=== PATIENT | female | born 1970 | race Caucasian/White ===

== ENCOUNTER 2021-02-16 11:39 | Emergency (ER) | payer OTHER, SELFPAY ==
[2021-02-16] VITALS (10 sets, daily range): BP systolic 98–133; BP diastolic 52–73; PULSE 62–78; RESP 16–18; TEMP 36.9; O2SAT 97–100
[2021-02-16 12:31] LABS: Basophils # 0.1 10^3/uL (0.0-0.1); Basophils % 1.1 %; Eosinophils # 0.1 10^3/uL (0.0-0.8); Eosinophils % 1.5 %; Hematocrit 42.1 % (37.0-47.0); Hemoglobin 13.6 g/dL (11.5-15.3); Lymphocytes # 2.3 10^3/uL (0.8-4.8); Lymphocytes % 30.3 %; Mean Corpuscular HGB Conc 32.3 g/dL (30.0-36.0); Mean Corpuscular Volume 95.9 fL (81-99); Mean Platelet Volume 10.2 fL (7.4-10.4); Monocytes # 0.6 10^3/uL (0.2-0.9); Monocytes % 7.7 %; Neutrophils # 4.44 10^3/uL (1.8-7.7); Neutrophils % 59.1 %; Nucleated Red Blood Cells % 0 %; Platelet Count 245 10^3/cmm (130-400); Red Blood Count 4.39 10^6/uL (4.1-5.3); Red Cell Distribution Width 13.7 % (12.1-15.1); White Blood Count 7.5 10^3/uL (4.0-10.0)
--- NOTE | 2021-02-16 12:41 | ED_ITS ---
HPI - Animal Bite General: Chief Complaint: Animal Bite Stated Complaint: SNAKE BITE LEFT LEG Time Seen by Provider: 02/16/21 11:45 Source: patient and family Mode of arrival: ambulatory Limitations: no limitations History of Present Illness: HPI narrative: Patient is a 51 year old female who presents to the ED with complaints of a snake bite to her right leg. She was gardening at home and while in the garden felt a bite to her right calf. She did not see the snake but noticed 2 puncture wounds in the area of the bite. No bleeding, no breathing difficulties, no numbness or tingling or other neurologic symptoms. She has some swelling around the bite. 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 She is here to be evaluated for this. MD complaint: animal bite Onset (ago): hour(s) (1) Animal: snake Description of animal: wild animal Mechanism: bite Location - Extremities: Right: lower leg Pain description: sharp Severity scale (1-10): 6 Context: unprovoked Associated symptoms: Deny bleeding, chills, cough, diaphoresis, erythema, fever(s), headache(s), numbness, rash, short of breath, syncope, weakness or wound drainage Review of Systems General: Reports: 10 or more systems reviewed and unremarkable except in HPI and below Const: Denies: fever(s), chills or diaphoresis Card: Denies: syncope Neuro: Denies: headache(s) Physical Exam Const: COMMON NORMALS: no acute distress, average body habitus, patient orien samara x3, no limitations, healthy appearing, alert and well nourished HENMT: COMMON NORMALS: normocephalic, atraumatic and moist oral mucous membran es HEAD & SCALP: normocephalic and atraumatic Neck/C-Spine: COMMON NORMALS: full ROM, supple, no meningeal signs, no JVD and No carotid bruits Resp: COMMON NORMALS: normal respiratory effort, No retractions, No use of accessory muscles, clear to auscultation bilaterally and percussion normal AUSCULTATION: clear to auscultation bilaterally PERCUSSION: percussion normal Cardio: COMMON NORMALS: no JVD, regular rate, regular rhythm, S1 normal heart sound present, S2 normal heart sound present, No gallops present (Cardio), No clicks present (Cardio), No murmurs present (Cardio), No rub (Cardio) and Peripheral pulses 2+ throughout RATE: regular rate RHYTHM: regular rhythm HEART SOUNDS: S1 normal heart sound present and S2 normal heart sound present PERIPHERAL PULSES: Peripheral pulses 2+ throughout GI: COMMON NORMALS: Normal to inspection, nondistended, normoactive bowel sounds present, Soft to palpation, non-tender, No hepatosplenomegaly present, no masses and no bruits PALPATION: Yes Soft to palpation and Yes No hepatosplenomegaly present Extremity: COMMON NORMALS: normal to inspection, full ROM, capillary refill normal, no calf tenderness and no pedal edema Neuro: COMMON NORMALS: patient oriented x3 SENSORIUM/ORIENTATION: Yes alert MENINGEAL SIGNS: Yes no meningeal signs Skin: COMMON NORMALS: turgor normal, no jaundice, no petechiae and no mottling NARRATIVE SKIN EXAM: there are barely visible puncture holley on the proximal right calf in a longitudinal orientation. Mild swelling around the puncture wounds. No erythema, no bleeding from the wounds, no drainage from the wounds. GENERAL SKIN EXAM: turgor normal and no erythema Course Reevaluation(s): Reevaluation #1: Patient has been observed for at least 3 hours in the ED. No adverse reactions noted. Still asymptomatic. Will discharge her home and wound care instructions given to the patient. She voiced understanding and all questions answered. Time: 14:44 Vital Signs: Vital signs: Vital Signs Temperature 98.5 F 02/16/21 11:51 Pulse Rate 66 02/16/21 14:57 Respiratory Rate 16 02/16/21 14:57 Blood Pressure 107/68 02/16/21 14:57 Pulse Oximetry 99 02/16/21 14:57 MDM - Animal Bite MDM Narrative: Medical decision making narrative: Patient with an apparent snake bite to her right calf. No obvious adverse effect from the bite and she was observed in the ED for about 3 hours with no change in her symptoms. No significant local or systemic symptoms following the bite. If this was a snake bite it is a non venomous snake. Patient did not see the snake. Wound care instructions given to the patient. Medical Records: Attestation: I reviewed the patient's medical records. Lab Data: Attestation: I reviewed the patient's lab results. Labs: Lab Results 02/16/21 02/16/21 02/16/21 Range/Units 12:15 12:15 12:15 WBC 7.5 (4.0-10.0) 10^3/ uL RBC 4.39 (4.1-5.3) 10^6/u L Hgb 13.6 (11.5-15.3) g/dL Hct 42.1 (37.0-47.0) % MCV 95.9 (81-99) fL MCH 31.0 (28.0-34.0) pg MCHC 32.3 (30.0-36.0) g/dL RDW 13.7 (12.1-15.1) % Plt Count 245 (130-400) 10^3/c mm MPV 10.2 (7.4-10.4) fL Neut % (Auto) 59.1 % Lymph % (Auto) 30.3 % Maverick % (Auto) 7.7 % Eos % (Auto) 1.5 % Baso % (Auto) 1.1 % Neut # (Auto) 4.44 (1.8-7.7) 10^3/u L Lymph # (Auto) 2.3 (0.8-4.8) 10^3/u L Maverick # (Auto) 0.6 (0.2-0.9) 10^3/u L Eos # (Auto) 0.1 (0.0-0.8) 10^3/u L Baso # (Auto) 0.1 (0.0-0.1) 10^3/u L Nucleated RBC % (a uto) 0 % Nucleated RBCs # 0.0 /100WBC PT Cancelled INR Cancelled Sodium Cancelled Potassium Cancelled Chloride Cancelled Carbon Dioxide Cancelled Anion Gap Cancelled BUN Cancelled Creatinine Cancelled GFR Calculation Cancelled Glucose Cancelled Calculated Osmolal ity Cancelled Calcium Cancelled Total Bilirubin Cancelled AST Cancelled ALT Cancelled Alkaline Phosphata se Cancelled Creatine Kinase Cancelled C-Reactive Protein Cancelled Total Protein Cancelled Albumin Cancelled Globulin Cancelled 02/16/21 02/16/21 Range/Units 12:40 12:40 WBC (4.0-10.0) 10^3/ uL RBC (4.1-5.3) 10^6/u L Hgb (11.5-15.3) g/dL Hct (37.0-47.0) % MCV (81-99) fL MCH (28.0-34.0) pg MCHC (30.0-36.0) g/dL RDW (12.1-15.1) % Plt Count (130-400) 10^3/c mm MPV (7.4-10.4) fL Neut % (Auto) % Lymph % (Auto) % Maverick % (Auto) % Eos % (Auto) % Baso % (Auto) % Neut # (Auto) (1.8-7.7) 10^3/u L Lymph # (Auto) (0.8-4.8) 10^3/u L Maverick # (Auto) (0.2-0.9) 10^3/u L Eos # (Auto) (0.0-0.8) 10^3/u L Baso # (Auto) (0.0-0.1) 10^3/u L Nucleated RBC % (a uto) % Nucleated RBCs # /100WBC PT 19.60 H INR 1.62 H Sodium 139 Potassium 3.8 Chloride 108 H Carbon Dioxide 20 L Anion Gap 14.8 BUN 19 Creatinine 0.7 GFR Calculation 87.5 L Glucose 89 Calculated Osmolal ity 290 Calcium 8.8 Total Bilirubin 0.3 AST 26 ALT 20 Alkaline Phosphata se 63 Creatine Kinase 195 H C-Reactive Protein 1.1 Total Protein 6.8 Albumin 4.2 Globulin 2.6 Discharge Plan Discharge Patient Disposition: Home Clinical Impression: Snake bite Qualifiers: Encounter type: initial encounter Qualified Code(s): W59.11XA - Bitten by no nvenomous snake, initial encounter Condition: Stable Prescriptions: Continued Vitamin C 1,000 mg Tablet 1,000 mg PO DAILY RF: 0 Zyrtec 10 mg Tablet 10 mg PO DAILY RF: 0 vitamin A 50,000 unit Capsule 1 unit PO DAILY RF: 0 atenolol 25 mg tablet 25 mg PO DAILY RF: 0 sumatriptan succinate 50 mg tablet See Rx Instructions .ROUTE .COMPLEX PRN (Reason: MIGRAINS) RF: 0 potassium chloride 10 mEq tablet extended release 10 meq PO BID RF: 0 acyclovir 400 mg tablet 400 mg PO BID RF: 0 alprazolam 0.5 mg tablet 0.5 mg PO TID RF: 0 Pepcid 20 mg Tablet 20 mg PO DAILY RF: 0 Synthroid 150 mcg tablet 150 mcg PO DAILY RF: 0 estradiol 0.01 % (0.1 mg/gram) cream See Rx Instructions .ROUTE .COMPLEX RF: 0 docusate sodium 250 mg Capsule 250 mg PO DAILY RF: 0 folic acid 800 mcg Tablet 0.8 mg PO DAILY RF: 0 tjrteqhe-ricuqjv-mtvt-lutein Tablet 1 tab PO DAILY RF: 0 Skelaxin 800 mg tablet 800 mg PO TID RF: 0 bupropion HCl 300 mg tablet extended release 24 hr 300 mg PO DAILY RF: 0 zinc 50 mg Capsule 50 mg PO DAILY RF: 0 vitamin B6-vitamin E-magnesium Tablet 1 tab PO DAILY RF: 0 nitrofurantoin monohyd/m-cryst 100 mg capsule 100 mg PO DAILY RF: 0 Cinnamon 500 mg Capsule 2,000 mg PO DAILY RF: 0 PreserVision AREDS [id number] Capsule 1 cap PO BID RF: 0 Vitamin D3 125 mcg (5,000 unit) Tablet 125 mcg PO DAILY RF: 0 Vitamin B-12 5,000 mcg Tablet, Sublingual 5,000 mcg SUBLINGUAL DAILY RF: 0 Xarelto 20 mg tablet 20 mg PO DAILY RF: 0 flaxseed oil-omega 3,6,9 1,300 mg-845 mg -117 mg-117 mg Capsule 1 cap PO DAILY RF: 0 Trokendi XR 200 mg capsule,extended release 24hr 200 mg PO DAILY RF: 0 magnesium oxide 400 mg magnesium Tablet 400 mg PO DAILY RF: 0 Weltract 2 tab PO DAILY RF: 0 Discharge Orders: Discharge ED (Routine); Ordered 02/16/21 Ordered By: Jyoti Beltre Discharge Diet: Usual diet Discharge Activity: Resume usual activity Patient Instructions: Snake Bite (ED) Activity Restrictions/Additional Instructions: Return for any new or worsening symptoms. Follow-up with your primary care provider within 3 days. Keep the left leg elevated to reduce swelling. You can apply a cold compress to the affected area for 10 to 15 minutes at a time about 3 times a day. Take Tylenol or ibuprofen as needed for pain. 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
[2021-02-16 13:03] LABS: INR 1.62 (0.8-1.2)
[2021-02-16 13:12] LABS: Alanine Aminotransferase 20 U/L (0-33); Albumin Level 4.2 g/dL (3.5-5.2); Alkaline Phosphatase 63 IU/L (35-105); Anion Gap 14.8 (5-19); Aspartate Amino Transferase 26 U/L (0-32); Blood Urea Nitrogen 19 mg/dL (6-20); C Reactive Protein 1.1 mg/L (0.0-4.9); Calcium 8.8 mg/dL (8.5-10.5); Carbon Dioxide 20 mmol/L (22-29); Chloride 108 mmol/L (98-107); Creatine Phosphokinase 195 U/L (26-192); Globulin 2.6 g/dL (1.3-4.6); Glomerular Filtration Rate 87.5 mL/min (90-130); Glucose 89 mg/dL (65-115); Osmolality Calculated 290 mOsm/kg (285-295); Potassium 3.8 mmol/L (3.5-5.1); Sodium 139 mmol/L (136-145); Total Bilirubin 0.3 mg/dL (0.15-1.2); Total Protein 6.8 g/dL (6.6-8.7)
[2021-02-16] MEDS: acetaminophen 500 mg Tablet 1000 MG PO (13:15)
== END 2021-02-16 14:58 | disposition home or self-care (01) ==
PROVIDERS: Emergency Provider Family Medicine
DX: S81.852A Open bite, left lower leg, initial encounter (principal); W59.11XA Bitten by nonvenomous snake, initial encounter
CPT/HCPCS: 80053; 82550; 85025; 85610; 86140; 99284

== ENCOUNTER 2023-10-02 19:36 | Emergency (ER) | payer OTHER, SELFPAY ==
--- NOTE | 2023-10-02 19:41 | XRR_ITS ---
PROCEDURE INFORMATION: Exam: XR Right Knee Exam date and time: 10/02/2023 8:22 PM Age: 53 years old Clinical indication: Injury or trauma; Other: RT knee pain post fall TECHNIQUE: Imaging protocol: Radiologic exam of the right knee. Views: 3 views. COMPARISON: No relevant prior studies available. FINDINGS: Bones/joints: Subtle comminuted fracture of the posterior margin of the lateral tibial plateau. Mild tricompartmental marginal osteophytosis. Soft tissues: Normal. XR/XR knee RT 3V* [id number] IMPRESSION: Subtle comminuted fracture of the posterior margin of the lateral tibial plateau, please refer to the concurrent CT examination.
[2023-10-02 19:53] VITALS: BP 105/58; PULSE 91; RESP 14; TEMP 36.7; O2SAT 97; BMI 41.2
--- NOTE | 2023-10-02 20:29 | CTR_ITS ---
PROCEDURE INFORMATION: Exam: CT Right Lower Extremity Without Contrast, Knee Exam date and time: 10/02/2023 8:57 PM Age: 53 years old Clinical indication: Injury or trauma; Blunt trauma; Right; Patient HX: Approximate 5 ft fall off of a ladder. C/O RT knee pain and unable to bear weight. TECHNIQUE: Imaging protocol: CT of the right lower extremity without contrast was performed. Exam focused on the knee. Radiation optimization: All CT scans at this facility use at least one of these dose optimization techniques: automated exposure control; mA and/or kV adjustment per patient size (includes targeted exams where dose is matched to clinical indication); or iterative reconstruction. COMPARISON: CR (LOW EXM, ) 10/02/2023 8:22 PM RADIATION DOSE METRICS: Total DLP (mGy-cm): 542.66 FINDINGS: Bones/joints: Comminuted fracture of the posterior margin of the lateral tibial plateau measuring 1.6 cm in diameter with up to 0.7 cm concavity. Mild degenerative spurring of the medial and lateral compartments along the joint line and intercondylar notch. Mild spurring in the patellofemoral compartment. Mild arthrosis of the proximal tibiofibular joint. Soft tissues: Mild knee effusion. CT/CT knee RT wo con* [id number] IMPRESSION: Mildly comminuted acute fracture of the posterior margin of the lateral tibial plateau.
--- NOTE | 2023-10-02 21:11 | ED_ITS ---
HPI - Extremity Problem General: Chief complaint: Extremity Injury, Lower Stated complaint: Right knee Pain Time Seen by Provider: 10/02/23 20:20 Source: patient Mode of arrival: ambulatory Limitations: no limitations History of Present Illness: 53-year-old female states that she fell roughly 5 to 6 foot off a ladder she states she did land on her right leg and twisted felt a pop in that right knee has had pain in that knee since then states she has not really been able to bear any weight rates pain a 4 out of 10 currently denies hitting her head denies any loss of consciousness denies any other injuries. Associated symptoms: Deny chest pain, fever(s) or rash Review of Systems Const: Denies: fever(s), chills, body aches or change in appetite ENMT: Denies: throat pain or dental pain Card: Denies: chest pain Resp: Denies: dyspnea GI: Denies: abdominal pain, nausea, vomiting or diarrhea Musc: Reports: extremity pain; Denies: neck pain or back pain Skin/Breast: Denies: rash Neuro: Denies: headache(s) Physical Exam Const: COMMON NORMALS: no acute distress, patient oriented x3 and healthy appearing HENMT: COMMON NORMALS: normocephalic and atraumatic HEAD & SCALP: normocephalic and atraumatic Neck/C-Spine: COMMON NORMALS: full ROM and supple Chest: COMMONS NORMALS: normal inspection of the chest Resp: COMMON NORMALS: normal respiratory effort Extremity: NARRATIVE EXTREMITY EXAM: Tenderness noted to right knee some bruising distal pulses sensation intact Neuro: COMMON NORMALS: patient oriented x3, moves all extremities and no focal motor deficits Psych: COMMON NORMALS: mental status grossly normal, Normal thought process present and cooperative THOUGHT PROCESS: Normal thought process present Skin: COMMON NORMALS: no rashes or lesions noted and no wounds GENERAL SKIN EXAM: no rashes or lesions noted Course Vital Signs: Vital signs: Vital Signs Temperature 98.1 F 10/02/23 19:53 Pulse Rate 91 10/02/23 19:53 Respiratory Rate 14 10/02/23 19:53 Blood Pressure 105/58 10/02/23 19:53 Pulse Oximetry 97 10/02/23 19:53 Oxygen Delivery Me thod Room Air 10/02/23 19:53 MDM - Extremity (Nontraumatic) Medical Decision Making Patient presents here with a knee injury does have a tibial plateau fracture seen on CT will mobilize she is to be nonweightbearing she is use crutches we will get her follow-up with orthopedics she understands agrees to plan. Medical Records I reviewed the patient's medical records. Lab Data Radiology Impressions Knee X-Ray 10/02/23 19:41 IMPRESSION: Subtle comminuted fracture of the posterior margin of the lateral tibial plateau, please refer to the concurrent CT examination. Knee CT 10/02/23 20:29 IMPRESSION: Mildly comminuted acute fracture of the posterior margin of the lateral tibial plateau. All radiology interpretation(s) finalized by discharge Discharge Plan Discharge Patient Disposition: Home Clinical Impression: Closed fracture of tibial plateau Qualifiers: Encounter type: initial encounter Laterality: right Qualified Code(s): S82.141A - Displaced bicondylar fracture of right tibia, initial encounter for closed fracture Condition: Stable Prescriptions: No Action Vitamin C 1,000 mg Tablet 1,000 mg PO DAILY Zyrtec 10 mg Tablet 10 mg PO DAILY vitamin A 50,000 unit Capsule 1 unit PO DAILY atenolol 25 mg tablet 25 mg PO DAILY sumatriptan succinate 50 mg tablet See Rx Instructions .ROUTE .COMPLEX PRN (Reason: MIGRAINS) Rx Instructions: TAKE ONE TABLET AT ONSET OF MIGRAINE, A SECOND DOSE MAY BE TAKEN IN 2 HOURS. DO NOT EXCEED 2 DOSES IN 24 HOURS. potassium chloride 10 mEq tablet extended release 10 meq PO BID acyclovir 400 mg tablet 400 mg PO BID alprazolam 0.5 mg tablet 0.5 mg PO TID Pepcid 20 mg Tablet 20 mg PO DAILY Synthroid 150 mcg tablet 150 mcg PO DAILY estradiol 0.01 % (0.1 mg/gram) cream See Rx Instructions .ROUTE .COMPLEX Rx Instructions: 0.1 g vaginally, USE 3 TIMES PER WEEK docusate sodium 250 mg Capsule 250 mg PO DAILY folic acid 800 mcg Tablet 0.8 mg PO DAILY urggogkc-kcughof-ehma-lutein Tablet 1 tab PO DAILY Skelaxin 800 mg tablet 800 mg PO TID bupropion HCl 300 mg tablet extended release 24 hr 300 mg PO DAILY zinc 50 mg Capsule 50 mg PO DAILY vitamin B6-vitamin E-magnesium Tablet 1 tab PO DAILY nitrofurantoin monohyd/m-cryst 100 mg capsule 100 mg PO DAILY Cinnamon 500 mg Capsule 2,000 mg PO DAILY PreserVision AREDS [id number],[id number] [id number]-hu-[id number] Capsule 1 cap PO BID Vitamin D3 125 mcg (5,000 unit) Tablet 125 mcg PO DAILY Vitamin B-12 5,000 mcg Tablet, Sublingual 5,000 mcg SUBLINGUAL DAILY Xarelto 20 mg tablet 20 mg PO DAILY flaxseed oil-omega 3,6,9 1,300 mg-845 mg -117 mg-117 mg Capsule 1 cap PO DAILY Trokendi XR 200 mg capsule,extended release 24hr 200 mg PO DAILY magnesium oxide 400 mg magnesium Tablet 400 mg PO DAILY Weltract 2 tab PO DAILY Discharge Orders: Discharge ED (Routine); Ordered 10/02/23 Ordered By: Don Jaqeuz Referrals: Jmi Feliz DO [Physician] - 1-3 days Discharge Diet: Advance as tolerated Discharge Activity: Resume usual activity Patient Instructions: Leg Fracture (ED), Knee Immobilizer (ED) 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
[2023-10-02 22:00] VITALS: BP 149/79; PULSE 85; RESP 19; O2SAT 98
--- NOTE | 2023-10-02 22:00 | PC.NURSE ---
this specification writer had attempted to walk the pt and she reported that she would never be able to have the strength for crutches and requested a walker. Provider notified and he put in a DME order for a walker. DME employee arrived speedily and set pt up with walker and education. Pt was stable on her feet, non weight bearing on the right leg, and walking with a steady gait with the walker.
--- NOTE | 2023-10-04 07:51 | DCPLANNER ---
A message was sent to ortho on 10/04/[address] [facility] to contact patient
== END 2023-10-02 22:13 | disposition home or self-care (01) ==
PROVIDERS: Emergency Provider Emergency Medicine
DX: S82.141A Displaced bicondylar fracture of right tibia, initial encounter for closed fracture (principal); W11.XXXA Fall on and from ladder, initial encounter
CPT/HCPCS: 29530; 73562; 73700; 99284

== ENCOUNTER 2023-10-05 16:18 | Outpatient (CLI) | payer OTHER, SELFPAY | END 2023-10-05 16:19 | disposition home or self-care (01) | LOC: SPT 16:18 | PROVIDERS: Visit Provider Orthopaedic Surgery | DX: Z46.89 Encounter for fitting and adjustment of other specified devices (principal); S82.124D Nondisplaced fracture of lateral condyle of right tibia, subsequent encounter for closed fracture with routine healing; X58.XXXD Exposure to other specified factors, subsequent encounter | CPT/HCPCS: 97760; L1832 ==